=== PATIENT | male | born 1970 | race African-American/Black ===

== ENCOUNTER 2021-09-01 08:22 | Emergency (ER) | payer SELFPAY ==
[2021-09-01 08:38] VITALS: BP 132/81; PULSE 58; RESP 18; TEMP 36.7; O2SAT 99; BMI 24.6
[2021-09-01] MEDS: Acetaminophen 325 MG TABLET 650 MG PO (08:44)
--- NOTE | 2021-09-01 09:31 | ED_ITS ---
HPI - Dental/Oral General Chief complaint: Dental/Oral Stated complaint: dental pain Time Seen by Provider: 09/01/21 09:09 Source: patient Mode of arrival: ambulatory Limitations: no limitations History of Present Illness HPI Narrative: 50 yo male here with right lower dental pain x 2 days. NO injury or trauma. He went to walk-in dental clinic and made appointment for Wednesday. currently does not have any insurance. he is here with his partner and they are working on applying to [employer] for insurance today. no fevers, chills, difficulty swallowing or breathing. taking Motrin and Tylenol with continued pain Related Data Previous Rx's Medication Instructions Recorded clindamycin HCl 150 mg capsule 150 mg PO TID 10 Days #30 cap 09/01/21 ibuprofen 800 mg tablet 800 mg PO Q8H PRN #20 tab 09/01/21 oxycodone 5 mg tablet 5 mg PO Q8H PRN #8 tab 09/01/21 Allergies Allergy/AdvReac Type Severity Reaction Status Date / Time sulfamethoxazole Allergy Severe Anaphylaxis Verified 09/01/21 08:42 [From Bactrim] trimethoprim [From Bactrim] Allergy Anaphylaxis Verified 09/01/21 08:42 ivory soap Allergy Intermediate Rash Uncoded 09/01/21 08:42 Review of Systems Review of Systems: Yes all other systems are reviewed and are negative Constitutional: Constitutional: Reports no additional constitutional complaints, Denies body ache(s), Denies chills, Denies fever(s), Denies headache(s) and Denies weakness Eyes: Eyes: Reports no additional eye complaints and Denies change in vision ENT: Reports system reviewed and no additional complaints, except as documented, Reports dental pain, Denies dizziness, Denies headache(s), Denies nasal congestion, Denies nasal discharge and Denies neck pain Cardiovascular: Cardiovascular: Reports no additional cardiovascular complaints, Denies chest pain, Denies leg edema and Denies dyspnea Respiratory: Respiratory: Reports no additional respiratory complaints, Denies cough and Denies dyspnea Gastrointestinal: Gastrointestinal: Reports no additional gastrointestinal complaints, Denies abdominal pain, Denies diarrhea, Denies nausea and Denies vomiting Genitourinary: Genitourinary: Denies urinary incontinence Musculoskeletal: Musculoskeletal: Reports no additional musculoskeletal complaints, Denies back pain, Denies arthralgias, Denies joint swelling, Denies neck pain, Denies numbness and Denies tingling Integumentary/Breasts: Skin/Breast: Reports system reviewed and no additional complaints, except as docu and Denies rash Neurologic: Reports system reviewed and no additional complaints, except as documented, Denies Abnormal speech present, Denies dizziness, Denies headache(s), Denies numbness, Denies tingling and Denies weakness PMFSH Past Medical History Attestation statement: The following information was validated with the patient. Source: old records reviewed and nursing notes reviewed Social History Social History Advance Directives: No Advance Directives Information Provided: No Physical Exam Vital Signs: Vital Signs: Last Vital Signs Temp 98.0 F 09/01/21 08:38 Pulse 58 09/01/21 08:38 Resp 18 09/01/21 08:38 BP 132/81 09/01/21 08:38 Pulse Ox 99 09/01/21 08:38 Body Mass Index 24.6 Const: General: cooperative, healthy appearing, comfortable and no acute distress Orientation/consciousness: patient oriented x3 Limitations: no limitations HENMT: Other: Extensive dental caries No trismus Head: Yes normal to inspection Ears: hearing grossly normal bilaterally and TM's normal bilaterally General nose exam: Normal external nose present Face and sinus: Yes normal facial exam Mouth: Normal oral and palatal mucosa present Teeth image: 1. Broken, impacted, surrounding erythema with no fluctuance or induration Throat: Yes posterior oropharynx normal, Yes tonsils normal and Yes uvula midline Eyes: General: appearance normal, both eyes and all related structures Pupils: Equal, round and reactive pupils present Neck: Neck: Yes normal visual inspection, Yes full ROM, Yes no lymphadenopathy and Yes no meningeal signs Chest: Chest palpation & inspection: normal inspection of the chest Resp: Effort & Inspection: normal respiratory effort Auscultation: clear to auscultation bilaterally Cardio: Rate: regular rate Rhythm: regular rhythm Peripheral pulses: Peripheral pulses 2+ throughout GI: Inspection: Yes normal to inspection Palpation (GI): Soft to palpation and nontender Auscultation: normal bowel sounds Back/Spine/Pelvis: Thoracic/Lumbar Spine: thoracic and lumbar spine normal to inspection Skin: General skin exam: no rashes or lesions noted Neuro: General: patient oriented x3, no meningeal signs, no focal motor deficits and normal sensation to monofilament Cranial nerves: Yes Equal, round and reactive pupils present Cognition (Neuro): normal cognition Speech: No Abnormal speech present Gait exam (Neuro): Normal gait present Motor exam (neuro): 5/5 motor strength present throughout Extrem: General: Yes normal to inspection Course Course Course Narrative: Right lower dental pain for several days unrelieved with [id number] medications. Local infection with extensive caries and impaction. No trismus or concern for Ozzie's. Plan to initiate antibiotic course, provide analgesia for home. Given Toradol in the ER with improvement. Has appointment on Wednesday with dental. Given information for financial assistance to help him establish i. Reviewed worrisome signs and symptoms and when to return to the emergency department. Comfortable discharge home. Discharge Plan Discharge Clinical Impression: Dental abscess Patient Disposition: Home, Self-Care Instructions: Dental Abscess (ED) Additional Instructions: Salt water gargles Keep appt on Wednesday Prescriptions: New clindamycin HCl 150 mg capsule 150 mg PO TID 10 Days Qty: 30 RF: 0 oxycodone 5 mg tablet 5 mg PO Q8H PRN (Reason: pain) Qty: 8 RF: 0 ibuprofen 800 mg tablet 800 mg PO Q8H PRN (Reason: pain) Qty: 20 RF: 0 Referrals: Physician,None [Primary Care Provider] - 2 days Interventions: ED Discharge Assessment Last Done: 09/01/21 09:45 Discharge Date/Time: 09/01/21 09:45
[2021-09-01] MEDS: Ketorolac Tromethamine 60 MG/2 ML VIAL IM (09:40)
== END 2021-09-01 09:45 | disposition home or self-care (01) ==
PROVIDERS: Emergency Provider Student in an Organized Health Care Education/Training Program
DX: K04.7 Periapical abscess without sinus (principal); K08.89 Other specified disorders of teeth and supporting structures; Z79.899 Other long term (current) drug therapy
CPT/HCPCS: 96372; 99284; J1885

== ENCOUNTER 2022-06-16 10:04 | Emergency (ER) | payer MEDICAID, SELFPAY ==
[2022-06-16 10:17] VITALS: BP 159/105; PULSE 49; RESP 18; TEMP 35.8; O2SAT 96; BMI 24.9
--- NOTE | 2022-06-16 10:20 | ECG_ITS ---
Test Reason : dizziness Blood Pressure : / mmHG Vent. Rate : 050 BPM Atrial Rate : 059 BPM P-R Int : 000 ms QRS Dur : 096 ms QT Int : 394 ms P-R-T Axes : 042 056 054 degrees QTc Int : 359 ms Sinus bradycardia with 2nd degree A-V block (Mobitz I) Abnormal ECG No previous ECGs available Referred By: Generic ED Physician Electronically Signed By:MARIANNA RUFFIN MD
[2022-06-16 10:35] LABS: MANUAL DIFF FLAG NO
[2022-06-16 10:51] LABS: Anion Gap 12 (12-20); Blood Urea Nitrogen 10 mg/dL (9-16); Calcium 9.1 mg/dL (8.4-10.2); Carbon Dioxide 27 mmol/L (22-29); Chloride 107 mmol/L (96-108); Estimated Glomerular Filt Rate > 60; Glucose Random 99 mg/dL (60-115); Sodium 142 mmol/L (135-145)
[2022-06-16 10:57] LABS: Troponin-I High Sensitivity 8.9 ng/L (<3.5-35.0)
[2022-06-16 11:18] VITALS: BP 111/84; PULSE 56; RESP 17; TEMP 36.6; O2SAT 97
[2022-06-16 12:20] VITALS: BP 119/71; PULSE 47; RESP 13; TEMP 36.6; O2SAT 99
--- NOTE | 2022-06-16 12:49 | ED.GENADULT ---
HPI - General Adult General Chief complaint: General Medical Stated complaint: Dizziness Time Seen by Provider: 06/16/22 12:49 Source: patient Mode of arrival: ambulatory Limitations: no limitations History of Present Illness HPI narrative: 51-year-old male who presents emergency department for evaluation dizziness brought on by position change. The patient states the symptoms started 1 week prior. He states that they came on suddenly. He states that he woke up from sleep, side up and felt like the room was spinning. He states that since then he has had episodes of room spinning when he has a position change . He states that these symptoms will go away if he rests. He denied any other associated symptoms such as lightheadedness, headache, change in his vision, weakness. Patient states that he did have a neck injury several years ago and has had persistent numbness in both his left and right arms but this is unchanged. States he occasionally does have weakness in both his left and right arms but does not have any weakness at this time. He denied fever, chills, chest pain, shortness of breath, nausea, vomiting, diarrhea, change in his bowel movements. Related Data Previous Rx's Medication Instructions Recorded clindamycin HCl 150 mg capsule 150 mg PO TID 10 days #30 caps 09/01/21 ibuprofen 800 mg tablet 800 mg PO Q8H PRN pain #20 tabs 09/01/21 oxycodone 5 mg tablet 5 mg PO Q8H PRN pain #8 tabs 09/01/21 Allergies Allergy/AdvReac Type Severity Reaction Status Date / Time sulfamethoxazole Allergy Severe Anaphylaxis Verified 06/16/22 10:16 [From Bactrim] trimethoprim [From Bactrim] Allergy Anaphylaxis Verified 06/16/22 10:16 ivory soap Allergy Intermediate Rash Uncoded 09/01/21 08:42 Review of Systems Review of Systems: Yes all other systems are reviewed and are negative [facility] Past Medical History [facility] Narrative: Past medical history: None. Past surgical history: Right ankle fracture ORIF. Social history: He smokes 1/2 pack of cigarettes per day times 37 years. He occasionally drinks alcohol. He does smoke marijuana. Social History Social History Advance Directives: No Advance Directives Information Provided: No Physical Exam ED Vital Signs: Vital Signs - 24 hr 06/16/22 10:17 06/16/22 11:18 06/16/22 12:20 Temperature 96.5 F L 97.9 F 97.8 F Pulse Rate 49 L 56 47 L Respiratory Rate 18 17 13 Blood Pressure 159/105 H 111/84 119/71 Pulse Oximetry 96 97 99 Oxygen Delivery Method Room Air Room Air Room Air BMI result Body Mass Index 24.9 Const General: cooperative and no acute distress Orientation/consciousness: oriented to person and oriented to place Limitations: no limitations HENMT Head: Yes normal to inspection, Yes normocephalic and Yes atraumatic Ears: external ears normal General nose exam: Normal external nose present Face and sinus: Yes normal facial exam Mouth: Normal oral and palatal mucosa present Throat: Yes posterior oropharynx normal Eyes General: appearance normal, both eyes and all related structures Pupils: Equal, round and reactive pupils present Neck Neck: Yes normal visual inspection, Yes no lymphadenopathy, Yes trachea midline and Yes supple Chest Chest palpation & inspection: normal inspection of the chest and normal palpation of entire chest wall Resp Effort & Inspection: normal respiratory effort and able to speak in complete sentences Auscultation: clear to auscultation bilaterally Cardio Rate: bradycardic Rhythm: regular rhythm Heart sounds: S1 normal heart sound present, S2 normal heart sound present and no murmurs GI Inspection: Yes normal to inspection Palpation (GI): Soft to palpation, nontender and no guarding Auscultation: normal bowel sounds General: Yes no CVA tenderness Back/Spine/Pelvis Back: no CVA tenderness Skin General skin exam: no rashes or lesions noted Neuro General: oriented to person and oriented to place Cranial nerves: Yes CN's II-XII intact bilaterally and Yes Equal, round and reactive pupils present Cognition (Neuro): normal cognition Gait exam (Neuro): Normal gait present Motor exam (neuro): 5/5 motor strength present throughout Coordination: [id number] test normal and [id number]-[id number] test normal Extrem General: Yes normal to inspection Psych Appearance: grossly normal Speech and movement: Normal speech and movement present Affect: normal affect Attitude: cooperative Thought process: Normal thought process present Thought content: Normal thought content present Course Course Course Narrative: 51-year-old male who presents emergency department for evaluation of 1 week of intermittent vertigo like symptoms brought on by position change. He states that the symptoms are getting better but he is still having episodes of dizziness. The patient had no other significant associated symptoms. Patient's physical examination did reveal bradycardia otherwise his neurologic exam was nonfocal and he does not have any significant nystagmus. I did move the patient around on the bed and was unable to elicit any vertigo like symptoms. Patient was able to walk in the emergency department without any difficulty and his cerebellar exam was normal pain. The patient's dizziness is consistent with benign positional vertigo and I did discuss this with him. He was started on meclizine. Patient does have a second-degree AV block (Mobitz type 1) the patient will be referred to our covering apartment manager for further evaluation. Medical Decision Making Lab Data Lab results reviewed: Yes I reviewed the patient's lab results. Result diagrams: 06/16/22 10:32 06/16/22 10:32 Labs: Lab Results 06/16/22 06/16/22 06/16/22 Range/Units 10:32 10:32 10:32 WBC 5.5 (4.8-10.8) X10*3/uL RBC 4.70 (4.60-5.80) X10*6/uL Hgb 13.9 L (14.0-18.0) g/dl Hct 42.8 (42.0-52.0) % MCV 91.1 (80.0-98.0) fL MCH 29.6 (27.0-33.0) pg MCHC 32.5 (31.0-36.0) g/dl RDW 12.0 (11.0-16.0) % Plt Count 216 (160-400) X10*3/uL MPV 10.2 (9.4-12.4) fL Immature Gran % (Auto) 0.4 (0.0-0.4) % Neut % (Auto) 37.1 L (45-73) % Lymph % (Auto) 47.0 H (20-40) % [place] % (Auto) 13.3 H (2-11) % Eos % (Auto) 1.5 (0-4) % Baso % (Auto) 0.7 (0-2) % Lymph # (Auto) 2.6 (1.2-4.9) X10*3/uL [place] # (Auto) 0.7 (0.1-1.2) X10*3/uL Eos # (Auto) 0.1 (0.0-0.4) X10*3/uL Baso # (Auto) 0.0 (0.0-0.2) X10*3/uL Abs Immat Gran (auto) 0.02 (0.00-0.03) X10*3/uL Absolute Neuts (auto) 2.0 (2.0-8.3) x10*3/uL Absolute Nucleated RBC 0.000 (0.0-0.012) X10*3/uL Nucleated RBC % (auto) 0.0 (0.0-0.2) /100WBC Sodium 142 (135-145) mmol/L Potassium 4.0 (3.3-5.1) mmol/L Chloride 107 (96-108) mmol/L Carbon Dioxide 27 (22-29) mmol/L Anion Gap 12 (12-20) BUN 10 (9-16) mg/dL Creatinine 0.96 (0.5-1.4) mg/dL Estim Creat Clear Calc 107.0 Estimated GFR > 60 Random Glucose 99 (60-115) mg/dL Calcium 9.1 (8.4-10.2) mg/dL Troponin I High Sens 8.9 (<3.5-35.0) ng/L ECG Data Attestation: I personally reviewed and interpreted this ECG as follows: Interpretation: 1026: Sinus bradycardia was second-degree AV block (Mobitz type 1) with a rate of 50, normal QRS and QTC intervals, inverted T-waves V1, no Q-waves, no ST segment elevation or depression, no PACs, no PVCs Discharge Plan Discharge Clinical Impression: Mobitz type 1 second degree AV block Benign positional vertigo Qualifiers: Laterality: unspecified laterality Qualified Code(s): H81.10 - Benign paroxysmal vertigo, unspecified ear Patient Disposition: Home, Self-Care Instructions: Benign Paroxysmal Positional Vertigo (ED), Bradycardia (ED) Additional Instructions: Your blood work was normal. Your EKG did reveal a second-degree AV block (Mobitz type 1). This is a normal rhythm however I want you to follow-up with our apartment manager for re-evaluation. Your symptoms are consistent with positional vertigo Take meclizine 25 mg pills, 1 pill 3 times a day for the next 3 days for dizziness then as needed for dizziness. This medication will make you sleepy. Do not drive or work while taking this medication. Follow-up with your doctor in 2 days. Please return to the emergency department if your symptoms get worse or if you develop any symptoms that are concerning to you. Please read the printed instructions. Prescriptions: No Action clindamycin HCl 150 mg capsule 150 mg PO TID 10 Days Qty: 30 0RF oxycodone 5 mg tablet 5 mg PO Q8H PRN (Reason: pain) Qty: 8 0RF ibuprofen 800 mg tablet 800 mg PO Q8H PRN (Reason: pain) Qty: 20 0RF Referrals: Harjinder Jose MD [Physician] - 2 weeks (Bradycardia with second-degree AV block Mobitz type 1)
[2022-06-16 13:08] LABS: Basophils Percent Auto 0.7 % (0-2); Eosinophils Absolute Auto 0.1 X10*3/uL (0.0-0.4); Eosinophils Percent Auto 1.5 % (0-4); Hematocrit 42.8 % (42.0-52.0); Hemoglobin 13.9 g/dl (14.0-18.0); Imm Gran Abs Auto 0.02 X10*3/uL (0.00-0.03); Imm Gran Pct Auto 0.4 % (0.0-0.4); Lymphocytes Absolute Auto 2.6 X10*3/uL (1.2-4.9); Mean Corpuscular HGB Conc 32.5 g/dl (31.0-36.0); Mean Corpuscular Hemoglobin 29.6 pg (27.0-33.0); Mean Corpuscular Volume 91.1 fL (80.0-98.0); Mean Platelet Volume 10.2 fL (9.4-12.4); Monocytes Absolute Auto 0.7 X10*3/uL (0.1-1.2); Monocytes Percent Auto 13.3 % (2-11); Neutrophils Percent Auto 37.1 % (45-73); Platelet Count 216 X10*3/uL (160-400); White Blood Count 5.5 X10*3/uL (4.8-10.8)
[2022-06-16 13:37] VITALS: BP 123/75; PULSE 56; RESP 16; O2SAT 98
== END 2022-06-16 13:48 | disposition home or self-care (01) ==
PROVIDERS: Emergency Provider Emergency Medicine Emergency Medical Services
DX: H81.10 Benign paroxysmal vertigo, unspecified ear (principal); I44.1 Atrioventricular block, second degree
CPT/HCPCS: 36415; 80048; 84484; 85025; 93005; 99283; 99284

== ENCOUNTER 2022-09-07 12:03 | Outpatient (REF) | payer MEDICAID, SELFPAY ==
[2022-09-07 12:36] LABS: MANUAL DIFF FLAG NO
[2022-09-07 13:33] LABS: Basophils Percent Auto 0.6 % (0-2); Eosinophils Percent Auto 0.6 % (0-4); Hematocrit 43.8 % (42.0-52.0); Hemoglobin 14.6 g/dl (14.0-18.0); Imm Gran Abs Auto 0.03 X10*3/uL (0.00-0.03); Imm Gran Pct Auto 0.6 % (0.0-0.4); Lymphocytes Absolute Auto 2.3 X10*3/uL (1.2-4.9); Mean Corpuscular HGB Conc 33.3 g/dl (31.0-36.0); Mean Corpuscular Hemoglobin 30.9 pg (27.0-33.0); Mean Corpuscular Volume 92.8 fL (80.0-98.0); Mean Platelet Volume 10.5 fL (9.4-12.4); Monocytes Absolute Auto 0.6 X10*3/uL (0.1-1.2); Monocytes Percent Auto 12.5 % (2-11); Neutrophils Percent Auto 40.7 % (45-73); Platelet Count 211 X10*3/uL (160-400); Red Blood Count 4.72 X10*6/uL (4.60-5.80); Red Cell Distribution Width 12.3 % (11.0-16.0)
[2022-09-07 14:05] LABS: Alanine Aminotransferase 13 U/L (0-40); Albumin Level 4.5 g/dL (3.5-5.0); Alkaline Phosphatase 54 U/L (39-117); Anion Gap 16 (12-20); Aspartate Amino Transferase 20 U/L (5-37); Bilirubin Total 0.8 mg/dL (0.0-1.0); Blood Urea Nitrogen 10 mg/dL (9-16); Calcium 9.7 mg/dL (8.4-10.2); Carbon Dioxide 26 mmol/L (22-29); Chloride 103 mmol/L (96-108); Cholesterol 209 mg/dL; Estimated Glomerular Filt Rate > 60; Glucose Random 93 mg/dL (60-115); HDL Cholesterol 54 mg/dL; LDL Cholesterol Calculated 136 mg/dl; Potassium 4.5 mmol/L (3.3-5.1); Sodium 140 mmol/L (135-145); Total Protein 7.6 g/dL (6.5-8.0); Triglycerides 99 mg/dL
[2022-09-07 14:27] LABS: Prostate Specific Antigen 0.53 ng/mL (<0.05-4.0); Thyroid Stimulating Hormone 1.11 uIU/mL (0.32-4.0)
== END 2022-09-07 12:04 | disposition home or self-care (01) ==
LOC: HO.LAB 12:03
PROVIDERS: PCP Internal Medicine; Visit Provider Internal Medicine
DX: Z00.00 Encounter for general adult medical examination without abnormal findings (principal); Z12.5 Encounter for screening for malignant neoplasm of prostate; G51.0 Bell's palsy; M65.842 Other synovitis and tenosynovitis, left hand; N49.2 Inflammatory disorders of scrotum; Z72.0 Tobacco use
CPT/HCPCS: 36415; 80053; 80061; 84153; 84443; 85025

== ENCOUNTER → 2022-10-19 13:32 | Outpatient (BNVA) | payer MEDICAID, SELFPAY | PROVIDERS: PCP Internal Medicine; Referring Provider Internal Medicine; Visit Provider Surgery | DX: Z01.818 Encounter for other preprocedural examination (principal); K64.8 Other hemorrhoids | CPT/HCPCS: 99202 ==

== ENCOUNTER → 2022-11-03 09:33 | Outpatient (BNVA) | payer MEDICAID, SELFPAY | PROVIDERS: PCP Internal Medicine; Visit Provider Nurse Practitioner Family | DX: Z13.89 Encounter for screening for other disorder (principal) ==

== ENCOUNTER 2022-12-02 10:33 | Outpatient (REF) | payer MEDICAID, SELFPAY ==
--- NOTE | ~2022-12-02 | XR_ITS ---
EXAMINATION: XR HAND, LEFT CLINICAL INFORMATION: Pain. COMPARISON: None TECHNIQUE: PA, lateral, and oblique views of the left hand. FINDINGS: Bony alignment and mineralization are normal. There is a slight ulnar positive variance. No fracture or dislocation is seen. There is mild osteoarthritic change of the first carpometacarpal joint. The proximal and distal carpal rows are intact. No focal soft tissue swelling, gas or foreign body is seen. XR/XR hand LT min 3V IMPRESSION: 1. No fracture, dislocation or bone erosion is seen. 2. There is mild osteoarthritic change of the left first carpometacarpal joint.
== END 2022-12-02 10:34 | disposition home or self-care (01) ==
LOC: HO.HOSX 10:33
PROVIDERS: Visit Provider Orthopaedic Surgery
DX: M79.642 Pain in left hand (principal); R20.0 Anesthesia of skin
CPT/HCPCS: 73130; 99202

== ENCOUNTER → 2022-12-07 11:23 | Outpatient (BNVA) | payer MEDICAID, SELFPAY | PROVIDERS: PCP Internal Medicine; Referring Provider Internal Medicine; Visit Provider Internal Medicine Cardiovascular Disease | DX: Z01.810 Encounter for preprocedural cardiovascular examination (principal) | CPT/HCPCS: 93005; 99202 ==

== ENCOUNTER → 2023-01-29 12:42 | Outpatient (BNVA) | payer MEDICAID, SELFPAY | PROVIDERS: PCP Internal Medicine; Visit Provider Physician Assistant | DX: M54.12 Radiculopathy, cervical region (principal); R20.0 Anesthesia of skin | CPT/HCPCS: 99212 ==

== ENCOUNTER → 2023-02-01 10:36 | Outpatient (BNVA) | payer MEDICAID, SELFPAY | PROVIDERS: PCP Internal Medicine; Visit Provider Nurse Practitioner Family | DX: L72.3 Sebaceous cyst (principal) | CPT/HCPCS: 99212 ==

== ENCOUNTER 2023-02-05 06:27 | Day surgery (SDC) | payer MEDICAID, SELFPAY ==
[2023-01-29 19:13] VITALS: BMI 25.7
--- NOTE | 2023-02-04 09:11 | P.CONAN_ITS ---
vbb Documented by User: Grecia Ponce NP 02/04/23 09:17 HPI - Anesthesia Eval Consult details Narrative: 52yo M for Colonoscopy with possible Polypectomy Cardiac optimized [facility] Active Problems Active Problems: All Active Problems (Updated 01/29/23 @ 13:09 by Vipul Moody PA-C) Cervical radiculopathy (Acute) Numbness of left hand (Acute) Sebaceous cyst of scrotum (Acute) Colon cancer screening (Acute) Hemorrhoids with complication (Acute) Past Medical History Medical History Colon cancer screening Hemorrhoids with complication Right ankle injury Sebaceous cyst of scrotum Family History Family History Mother Hypertension Diabetes Father No problems noted. Brother Gastric cancer Surgical History Surgical History History of ankle surgery Social History Social History Do you presently have visiting nurse or other home services: No Alcohol intake: former Patient Tobacco Use Status: Current everyday Tobacco user Tobacco use type: Cigarette Cigarettes Per Day: 10 Smoked in Last 30 Days: Yes Patient Interested in Nicotine Replacement: No Patient Given Instructions on How to Stop Smoking: No Second Hand Smoke Exposure: Yes Use of substances other than those prescribed or required for medical reasons: Yes Substance Use Frequency: Daily Have you been hit, kicked, punched, or otherwise hurt by someone within the past year? If so, by whom?: No Advance Directives: No Advance Directives Information Provided: Yes Recently lost weight without trying: No Eating poorly because of decreased appetite: No Nutrition Risks: No Nutritional Risk Poor oral hygiene: No Current occupational status: unemployed Current occupation: rt hand Meds Allergies Allergy/AdvReac Type Severity Reaction Status Date / Time trimethoprim [From Bactrim] Allergy Severe Anaphylaxis Verified 02/01/23 10:54 codeine Allergy Mild Unknown Verified 02/01/23 10:54 ivory soap Allergy Intermediate Rash Uncoded 02/01/23 10:54 Exam Exam Date and Time: February 04, 2023 0911 Height,Weight and Vital Signs: Height 6 ft 2 in Weight 90.718 kg Pertinent Lab Results Pertinent Lab Results: Laboratory Tests 09/07/22 09/07/22 12:34 12:34 WBC 5.0 Hgb 14.6 Hct 43.8 Plt Count 211 Sodium 140 Potassium 4.5 Chloride 103 Carbon Dioxide 26 BUN 10 Creatinine 1.02 Assessment and Plan Assessment Anesthesia Assessment: Chart Reviewed Documented by User: Rigoberto Garcia MD 02/05/23 08:28 PMFSH Past Medical History Medical History Colon cancer screening Hemorrhoids with complication Right ankle injury Sebaceous cyst of scrotum Family History Family History Mother Hypertension Diabetes Father No problems noted. Brother Gastric cancer Family history of problems with anesthesia: No Surgical History Surgical History History of ankle surgery History of Problems with Anesthesia: No Social History Social History Do you presently have visiting nurse or other home services: No Alcohol intake: former Patient Tobacco Use Status: Current everyday Tobacco user Tobacco use type: Cigarette Cigarettes Per Day: 10 Smoked in Last 30 Days: Yes Patient Interested in Nicotine Replacement: No Patient Given Instructions on How to Stop Smoking: No Second Hand Smoke Exposure: Yes Use of substances other than those prescribed or required for medical reasons: Yes Substance Use Frequency: Daily Have you been hit, kicked, punched, or otherwise hurt by someone within the past year? If so, by whom?: No Advance Directives: No Advance Directives Information Provided: Yes Recently lost weight without trying: No Eating poorly because of decreased appetite: No Nutrition Risks: No Nutritional Risk Poor oral hygiene: No Current occupational status: unemployed Current occupation: rt hand Meds Allergies Allergy/AdvReac Type Severity Reaction Status Date / Time trimethoprim [From Bactrim] Allergy Severe Anaphylaxis Verified 02/01/23 10:54 codeine Allergy Mild Unknown Verified 02/01/23 10:54 ivory soap Allergy Intermediate Rash Uncoded 02/01/23 10:54 Exam Airway Mallampati Class: II TM Dist: >3cm Neck ROM: Full Heart: rrr Lungs: cta Assessment and Plan Assessment Anesthesia Assessment: Anesthesia Plan Discussed and Chart Reviewed Final Anesthetic Review Family History of Problems with Anesthesia: No History of Problems with Anesthesia: No NPO: Yes ASA Class: II Final Preanesthetic Review: No Changes in Pt Med Stat, Meds/Allgs Chart Reviewed, Consent Obtained/Reviewed and Anes Risks/Benef Reviewed Patient Risk: Intermediate Procedure Risk: Intermediate Anesthetic Plan Anesthetic Plan: MAC: and Agree w/ Assess. and Plan Disposition: Standard PACU
[2023-02-05 06:38] VITALS: BP 123/77; PULSE 71; RESP 18; TEMP 36.2; O2SAT 97
[2023-02-05 06:41] VITALS: BMI 26.6
[2023-02-05] MEDS: Lactated Ringers 1,000 ML 100 ML IVCONT (07:17)
--- NOTE | 2023-02-05 07:24 | MHC.SHP ---
Pre-Procedural Eval Section A Date of Service: 02/05/23 Section B Chief Complaint: Screening Details of Present Illness: has never had colonoscopy in the past Relevant Social History: None Present Medications: see Short Stay Collaborative assessment Medical History: Significant History ( cervical radiculopathy) History of Previous Operations: No relevant previous surgery Allergies: Allergies Allergy/AdvReac Type Severity Reaction Status Date / Time trimethoprim [From Bactrim] Allergy Severe Anaphylaxis Verified 02/01/23 10:54 codeine Allergy Mild Unknown Verified 02/01/23 10:54 ivory soap Allergy Intermediate Rash Uncoded 02/01/23 10:54 Review of Systems Sugical H&P ROS: Negative: Constitution, Cardiovascular, Respiratory, Neurological, Psychiatric, Hem-Onc, Allergic/Immunologic, Gastrointestinal, Genitourinary, Musculoskeletal, Integumentary, Endocrine and Eyes/Ears/Nose/Throat Exam Surgical H&P Exam: Normal: HEENT, Normal: Heart, Normal: Lungs, Normal: Extremities, Normal: Abdomen, Normal: Skin and Normal: Neurological Plan Diagnosis/Plan: Unchanged I have reviewed the history and physical and performed a pertinent physical examination on my patient. No changes have occurred unless specified. Time Spent With Patient Time: Total time managing care of this patient today ____ minutes.
--- NOTE | 2023-02-05 08:14 | W.PM.OPN ---
Operative Note Operative Note Date of Service: 02/05/23 Narrative: Preop diagnosis: Colon cancer screening Postop diagnosis: Small polyp, about 4 5 mm, 40 cm removed with cold forceps Procedure: Colonoscopy with polypectomy using cold forceps x1 Surgeon: Ramakrishna Paiz MD The patient is a 52-year-old male here for screening colonoscopy. He understood the technique of the procedure. He was aware of the risks, benefits, and alternatives. The patient was brought to the operating room and placed in left lateral decubitus position under monitored anesthesia care. A surgical time-out was done. A full digital rectal exam was done and this did not reveal any significant anal lesions. The tip of the Olympus colonoscope was gently introduced through the anal orifice advanced with insufflation all the way to the cecum. The cecum was intubated. The cecum was identified by visualization of the ileocecal valve as well as the appendiceal orifice. The cecal mucosa was unremarkable. The scope was gradually withdrawn with careful examination of the entire colonic mucosa being done with scope withdrawal. The patient had good bowel prep so it was unlikely that any lesion may have been missed. At level 40 cm, there was note of a small polyp, about 4 mm. This was removed with multiple bites using cold forceps. The rectum was reached and there were no lesions seen. The anal canal was unremarkable. The scope was then withdrawn completely with desufflation The patient tolerated procedure well. There were no immediate complications. Depending on his path report, his next colonoscopy may be in the next 10 years.
[2023-02-05 08:18] VITALS: BP 107/65; PULSE 60; RESP 16; TEMP 36.6; O2SAT 97
--- NOTE | 2023-02-05 08:26 | HO.ANESPROP2 ---
HPI - Anesthesia Eval Consult details Narrative: colonoscopy PMF Active Problems Active Problems: All Active Problems (Updated 01/29/23 @ 13:09 by Vipul Moody PA-C) Cervical radiculopathy (Acute) Numbness of left hand (Acute) Sebaceous cyst of scrotum (Acute) Colon cancer screening (Acute) Hemorrhoids with complication (Acute) Past Medical History Medical History Colon cancer screening Hemorrhoids with complication Right ankle injury Sebaceous cyst of scrotum Family History Family History Mother Hypertension Diabetes Father No problems noted. Brother Gastric cancer Family history of problems with anesthesia: No Surgical History Surgical History History of ankle surgery History of Problems with Anesthesia: No Social History Social History Do you presently have visiting nurse or other home services: No Alcohol intake: former Patient Tobacco Use Status: Current everyday Tobacco user Tobacco use type: Cigarette Cigarettes Per Day: 10 Smoked in Last 30 Days: Yes Patient Interested in Nicotine Replacement: No Patient Given Instructions on How to Stop Smoking: No Second Hand Smoke Exposure: Yes Use of substances other than those prescribed or required for medical reasons: Yes Substance Use Frequency: Daily Have you been hit, kicked, punched, or otherwise hurt by someone within the past year? If so, by whom?: No Advance Directives: No Advance Directives Information Provided: Yes Recently lost weight without trying: No Eating poorly because of decreased appetite: No Nutrition Risks: No Nutritional Risk Poor oral hygiene: No Current occupational status: unemployed Current occupation: rt hand Meds Allergies Allergy/AdvReac Type Severity Reaction Status Date / Time trimethoprim [From Bactrim] Allergy Severe Anaphylaxis Verified 02/01/23 10:54 codeine Allergy Mild Unknown Verified 02/01/23 10:54 ivory soap Allergy Intermediate Rash Uncoded 02/01/23 10:54 Active Medications: Current Medications Albuterol Sulfate (Albuterol Sulfate (0.083%) 2.5 Mg/3 Ml Vial.Neb) 2.5 mg INHALE ONCE PRN PRN Reason: Shortness of Breath/Wheezing Lactated Ringer's (Lr) 1,000 mls @ 100 mls/hr IVCONT .Q10H CHARITY Last Admin: 02/05/23 07:17 Dose: 100 mls/hr Exam Exam Date and Time: February 05, 2023 0826 Height,Weight and Vital Signs: Height 6 ft 2 in Weight 94.347 kg Last Vital Signs Temp 98 F 02/05/23 08:20 Pulse 60 02/05/23 08:20 Resp 16 02/05/23 08:20 BP 107/65 02/05/23 08:20 Pulse Ox 97 02/05/23 08:20 O2 Del Method Room Air 02/05/23 08:20 Airway Mallampati Class: II TM Dist: >3cm Neck ROM: Full Heart: rrr Assessment and Plan Assessment Anesthesia Assessment: Anesthesia Plan Discussed and Chart Reviewed Final Anesthetic Review Family History of Problems with Anesthesia: No History of Problems with Anesthesia: No NPO: Yes ASA Class: II Final Preanesthetic Review: No Changes in Pt Med Stat, Meds/Allgs Chart Reviewed, Consent Obtained/Reviewed and Anes Risks/Benef Reviewed Patient Risk: Low Procedure Risk: Low Anesthetic Plan Anesthetic Plan: MAC: Disposition: Standard PACU
[2023-02-05 08:33] VITALS: BP 115/77; PULSE 60; RESP 16; TEMP 36.3; O2SAT 100
== END 2023-02-05 09:05 | disposition home or self-care (01) ==
PROVIDERS: PCP Internal Medicine; Visit Provider Surgery
PROC: 0DBE8ZZ Excision of Large Intestine, Via Natural or Artificial Opening Endoscopic (ICD-10-PCS; CPT 45380; principal; 2023-02-05 07:30)
DX: Z12.11 Encounter for screening for malignant neoplasm of colon (principal); D12.5 Benign neoplasm of sigmoid colon; K64.8 Other hemorrhoids; K64.4 Residual hemorrhoidal skin tags; L72.3 Sebaceous cyst; Z88.2 Allergy status to sulfonamides; F17.210 Nicotine dependence, cigarettes, uncomplicated
CPT/HCPCS: 45380; 88305

== ENCOUNTER → 2023-02-18 10:07 | Outpatient (BNVA) | payer MEDICAID, SELFPAY | PROVIDERS: PCP Internal Medicine; Visit Provider Surgery | DX: K64.8 Other hemorrhoids (principal); D36.9 Benign neoplasm, unspecified site | CPT/HCPCS: 99212 ==

== ENCOUNTER 2023-02-25 11:25 | Outpatient (REF) | payer MEDICAID, SELFPAY ==
--- NOTE | 2023-02-25 08:00 | EMG_ITS ---
Bilateral median and ulnar motor and sensory studies were performed. Bilateral radial sensory studies were performed and paraspinal muscles were tested with a needle. IMPRESSION: Mild to moderate left and mild right ulnar neuropathy across cubital tunnel. MD CHARLES Lopez/ELVIRA / [id number]
== END 2023-02-25 11:26 | disposition home or self-care (01) ==
LOC: HO.NEURO 11:25
PROVIDERS: PCP Internal Medicine; Visit Provider Orthopaedic Surgery
DX: R20.0 Anesthesia of skin (principal); R20.2 Paresthesia of skin
CPT/HCPCS: 95886; 95911

== ENCOUNTER 2023-03-16 07:29 | Day surgery (SDC) | payer MEDICAID, SELFPAY ==
[2023-03-11 14:38] VITALS: BMI 26.4
--- NOTE | 2023-03-15 09:12 | HO.ANESPROP2 ---
Documented by User: Grecia Ponce NP 03/15/23 09:15 HPI - Anesthesia Eval Consult details Narrative: 52yo M for EUA Hemorrhoidectomy, I&D Abscess Groin right Cardiac cleared PMFSH Active Problems Active Problems: All Active Problems (Updated 02/18/23 @ 10:36 by Ramakrishna Paiz MD) Tubular adenoma (Acute) Cervical radiculopathy (Acute) Numbness of left hand (Acute) Sebaceous cyst of scrotum (Acute) Colon cancer screening (Acute) Hemorrhoids with complication (Acute) Past Medical History Medical History (Updated 03/16/23 @ 09:06 by Jazlyn Vásquez, RN) Bradyarrhythmia Bradycardia Colon cancer screening Hemorrhoids with complication History of second degree heart block Right ankle injury Sebaceous cyst of scrotum Tubular adenoma Family History Family History Mother Hypertension Diabetes Father No problems noted. Brother Gastric cancer Family history of problems with anesthesia: No Surgical History Surgical History (Updated 03/16/23 @ 08:09 by Jazlyn Vásquez RN) History of ankle surgery Hx of colonoscopy History of Problems with Anesthesia: No Social History Social History Do you presently have visiting nurse or other home services: No Alcohol intake: former Patient Tobacco Use Status: Current everyday Tobacco user Tobacco use type: Cigarette Cigarettes Per Day: 10 Second Hand Smoke Exposure: Yes Are you DNR?: No Advance Directives: No Advance Directives Information Provided: Yes Current occupational status: unemployed Current occupation: rt hand Meds Allergies Allergy/AdvReac Type Severity Reaction Status Date / Time trimethoprim [From Bactrim] Allergy Severe Anaphylaxis Verified 02/18/23 10:17 codeine Allergy Mild Unknown Verified 02/18/23 10:17 ivory soap Allergy Intermediate Rash Uncoded 02/01/23 10:54 Exam Exam Date and Time: March 15, 2023 0912 Height,Weight and Vital Signs: Height 6 ft 2 in Weight 93.44 kg Narrative Narrative: EKG 11/2022 normal sinus rhythm with normal EKG Assessment and Plan Assessment Anesthesia Assessment: Chart Reviewed Final Anesthetic Review Family History of Problems with Anesthesia: No History of Problems with Anesthesia: No Documented by User: Mark Peña MD 03/16/23 10:12 [facility] Past Medical History Medical History (Updated 03/16/23 @ 09:06 by Jazlyn Vásquez, RN) Bradyarrhythmia Bradycardia Colon cancer screening Hemorrhoids with complication History of second degree heart block Right ankle injury Sebaceous cyst of scrotum Tubular adenoma Narrative: 2nd degree heart block, Mobitz type 1. D/W Dr. Jose. Family History Family History Mother Hypertension Diabetes Father No problems noted. Brother Gastric cancer Surgical History Surgical History (Updated 03/16/23 @ 08:09 by Jazlyn Vásquez, RN) History of ankle surgery Hx of colonoscopy Social History Social History Do you presently have visiting nurse or other home services: No Alcohol intake: former Patient Tobacco Use Status: Current everyday Tobacco user Tobacco use type: Cigarette Cigarettes Per Day: 10 Second Hand Smoke Exposure: Yes Are you DNR?: No Advance Directives: No Advance Directives Information Provided: Yes Current occupational status: unemployed Current occupation: rt hand Meds Allergies Allergy/AdvReac Type Severity Reaction Status Date / Time trimethoprim [From Bactrim] Allergy Severe Anaphylaxis Verified 02/18/23 10:17 codeine Allergy Mild Unknown Verified 02/18/23 10:17 ivory soap Allergy Intermediate Rash Uncoded 02/01/23 10:54 Exam Airway Mallampati Class: I TM Dist: >3cm Neck ROM: Full Heart: ok Lungs: ok Assessment and Plan Assessment Anesthesia Assessment: Anesthesia Plan Discussed Final Anesthetic Review NPO: Yes ASA Class: II Final Preanesthetic Review: No Changes in Pt Med Stat, Meds/Allgs Chart Reviewed, Consent Obtained/Reviewed and Anes Risks/Benef Reviewed Patient Risk: Low Procedure Risk: Intermediate Anesthetic Plan Anesthetic Plan: GA and Agree w/ Assess. and Plan Disposition: Standard PACU
[2023-03-16] VITALS (8 sets, daily range): BP systolic 116–148; BP diastolic 66–97; PULSE 42–82; RESP 16–22; TEMP 36.6–37.2; O2SAT 98
[2023-03-16] MEDS: Lactated Ringers 1,000 ML 100 ML IVCONT (08:25)
--- NOTE | 2023-03-16 08:42 | ECG_ITS ---
Test Reason : pre op Blood Pressure : / mmHG Vent. Rate : 039 BPM Atrial Rate : 052 BPM P-R Int : 000 ms QRS Dur : 098 ms QT Int : 420 ms P-R-T Axes : 037 053 045 degrees QTc Int : 338 ms Sinus bradycardia with 2nd degree A-V block (Mobitz I) Abnormal ECG No previous ECGs available Referred By: Savage Dumont Electronically Signed By:MARIANNA RUFFIN MD
--- NOTE | 2023-03-16 08:43 | PC.NURSE ---
hr ranging from 35-50 ekg ordered pt denies dizziness no sob a/ox3
--- NOTE | 2023-03-16 10:01 | PC.NURSE ---
dr zambrano spoke to hospice music therapy they will proceed with procedure
--- NOTE | 2023-03-16 11:05 | W.PM.OPN ---
Operative Note Operative Note Date of Service: 03/16/23 Narrative: Preop diagnosis: 1.Hemorrhoids with pain and bleeding 2.Multiple scrotal cysts Postop diagnosis: The same Procedure: 1. 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 He wanted to proceed with hemorrhoidectomy because of his symptoms. He also had multiple scrotal cysts and wanted to proceed with excision of these as well. He understood the technique of both procedures. He was aware of the risks, benefits, and alternatives. He was brought to the operating room. He was placed in prone radha-knife position under general anesthesia via laryngeal mask airway. The buttocks were retracted with wide tape laterally. The perianal area was prepped and draped in the usual sterile fashion. A surgical time-out was done. The patient received Cefotan 2 g IV preoperatively. Examination of the anal orifice revealed externall hemorrhoids, moderate size, on the left and right side. I inserted the Daylin Muhammad retractor and examined the anal canal circumferentially. This same hemorrhoidal columns are noted with a mix of internal component. I applied a Fontanez grasper at the hemorrhoidal column the left to retract this. I made a figure of 8 stitch at its pedicle using chromic 3-0. I made an incision around this hemorrhoidal column to the perianal skin using a blade 15. I excised this hemorrhoidal column above the plane of sphincters using Metzenbaum scissors. I closed this incision with a running chromic 3-0 stitch. Additional hemostatic figure-eight sutures were placed for oozing areas. I proceeded to then remove the hemorrhoidal column on the right side in the same fashion. This hemorrhoidal column was retracted using a Fontanez clamp. I decyyq-ie-[id number] stitch was placed at its pedicle. I made an incision around this hemorrhoidal column to the perianal skin using blade 15. I excised this hemorrhoidal column above the plane of sphincters using scissors and closed this incision with a running chromic 3-0 stitch. Additional hemostatic sutures were placed Once hemostasis was confirmed, I infiltrated the perianal area with Marcaine 0.5% for postop analgesia. The patient was then positioned supine. He was therefore rolled over to a stretcher. The scrotum and the penis were prepped and draped along with the perineum and the groin. There was note of a area of the scrotum with multiple non confluent cystic induration. I marked the planned line of incision. I infiltrated this with lidocaine 1%. I made the incision using blade 15. To include all this serrated areas. This was carried down through the full-thickness of the skin and subcutaneous fat using electrocautery. These area excised measured about 7 cm x 4 cm. I closed this incision with a running 3-0 stitch after copious irrigation. I used electrocautery to cauterize oozing areas prior to closing the incision. Dressings were applied. The procedure was completed . The patient tolerated procedure well. There were no immediate complications. Initial and final counts of sponges and instruments were correct. Estimated blood loss was about 30 cc. The patient was extubated without difficulty and transferred to the recovery room with stable vital signs.
[2023-03-16] MEDS: fentaNYL citrate/PF 100 MCG/2 ML VIAL 50 MCG IVPUSH (11:45)
[2023-03-16] MEDS: Acetaminophen 325 MG TABLET 650 MG PO (11:47)
[2023-03-16] MEDS: oxyCODONE HCl Immed Release 5 MG TABLET 10 MG PO (11:47)
== END 2023-03-16 12:57 | disposition home or self-care (01) ==
PROVIDERS: PCP Internal Medicine; Visit Provider Surgery
PROC: (CPT 46260; principal; 2023-03-16 09:40)
PROC: (CPT 46260; 2023-03-16 09:40)
PROC: (CPT 46260; 2023-03-16 09:40)
DX: K64.8 Other hemorrhoids (principal); Z86.010 Personal history of colon polyps; L72.0 Epidermal cyst; K64.4 Residual hemorrhoidal skin tags; Z88.8 Allergy status to other drugs, medicaments and biological substances; F17.210 Nicotine dependence, cigarettes, uncomplicated
CPT/HCPCS: 46260; 11426; 88304; 93005; J1885; J2405; J2795; J3010

== ENCOUNTER 2023-03-26 06:22 | Emergency (ER) | payer MEDICAID, SELFPAY ==
[2023-03-26 06:24] VITALS: BP 153/82; PULSE 71; RESP 18; TEMP 36.6; O2SAT 98; BMI 25.8
[2023-03-26 06:30] VITALS: BP 153/82; PULSE 75; RESP 20; TEMP 36.9; O2SAT 98
--- NOTE | 2023-03-26 06:37 | PC.NURSE ---
Patient alert and oriented x3. Reports recent surgery to remove cysts on testes and hemorrhoid removal in which stitches recently burst and wound opened. Quarter sized wound viewed at testees and scant blood on dressing. B/P elevated, afebrile and HR 75. Patient reports 10/10 pain.
--- NOTE | 2023-03-26 06:41 | ED.MALEGU ---
HPI - Male Genitourinary General Chief complaint: Urogenital-Male Stated complaint: pain in back and private area Time Seen by Provider: 03/26/23 06:28 Source: patient and family (significant other) Mode of arrival: ambulatory Limitations: no limitations History of Present Illness HPI Narrative: Patient is a 52-year-old male with history of hemorrhoidectomy and excision of multiple scrotal cysts on 03/16/2023 presenting with scrotal pain since this morning, concerned that several of his sutures have ruptured. He denies any fever or abnormal drainage. He does report dark elisa urine but denies any other urinary symptoms. He denies any abdominal pain. His SO reports that he has had a small amount of bloody drainage from his incision since surgery. He was discharged home with Percocet, but his SO reports these were causing constipation so patient has not used them in several days. He denies any abdominal, back, or flank pain. Related Data Previous Rx's Medication Instructions Recorded docusate sodium 100 mg capsule 100 mg PO BID #60 caps 03/16/23 (Colace) ibuprofen 600 mg tablet 600 mg PO Q6H PRN pain #30 tabs 03/16/23 oxycodone-acetaminophen 5 mg-325 1 tab PO Q4-6H PRN pain #30 tabs 03/16/23 mg tablet (Percocet) Allergies Allergy/AdvReac Type Severity Reaction Status Date / Time trimethoprim [From Bactrim] Allergy Severe Anaphylaxis Verified 02/18/23 10:17 codeine Allergy Mild Unknown Verified 02/18/23 10:17 ivory soap Allergy Intermediate Rash Uncoded 02/01/23 10:54 Review of Systems Review of Systems: As per HPI Yes all other systems are reviewed and are negative [facility] Past Medical History Medical History (Updated 03/26/23 @ 08:30 by Maya King NP) Bradyarrhythmia Bradycardia Colon cancer screening Hemorrhoids with complication History of second degree heart block Right ankle injury Sebaceous cyst of scrotum Tubular adenoma Surgical History (Updated 03/16/23 @ 08:09 by Jazlyn Vásquez RN) History of ankle surgery Hx of colonoscopy Family History Family History Mother Hypertension Diabetes Father No problems noted. Brother Gastric cancer Social History Social History Do you presently have visiting nurse or other home services: No Alcohol intake: never Patient Tobacco Use Status: Current everyday Tobacco user Tobacco use type: Cigarette Cigarettes Per Day: 10 Smoked in Last 30 Days: Yes Second Hand Smoke Exposure: Yes Use of substances other than those prescribed or required for medical reasons: Yes Substance Use Type: Marijuana Substance Use Frequency: Daily Last Used Substance: Hours (ago) Advance Directives: No Advance Directives Information Provided: No Current occupational status: unemployed Current occupation: rt hand Physical Exam Vital Signs: Vital Signs: Last Vital Signs Temp 98.5 F 03/26/23 06:30 Pulse 75 03/26/23 06:30 Resp 20 03/26/23 06:30 BP 153/82 H 03/26/23 06:30 Pulse Ox 98 03/26/23 06:30 O2 Del Method Room Air 03/26/23 06:30 BMI result Body Mass Index 25.8 Const: General: no acute distress, alert and awake; No comfortable Orientation/consciousness: patient oriented x3 HEENT: Head: Yes normocephalic and Yes atraumatic Mouth: oropharynx normal and moist mucous membranes Throat: Yes uvula midline Eyes: Pupils: Equal, round and reactive pupils present EOM: EOMs intact bilaterally Neck: Neck: Yes normal visual inspection, Yes full ROM, Yes no lymphadenopathy, Yes no meningeal signs and Yes supple Resp: Effort & Inspection: normal respiratory effort Auscultation: clear to auscultation bilaterally Cardio: Rate: regular rate Rhythm: regular rhythm Heart sounds: S1 normal heart sound present and S2 normal heart sound present Peripheral pulses: Peripheral pulses 2+ throughout GI: Inspection: Yes normal to inspection and No distended Palpation (GI): Soft to palpation, nontender, no guarding and No Rebound tenderness present Auscultation: normoactive bowel sounds : Other: Chaperoned by CHACHA Gonzáles General: Yes no CVA tenderness Penis: normal penis Scrotum: edematous diffuse and other (small amount of bloody drainage noted on pad in underwear, TTP) Back/Spine/Pelvis: Back: no CVA tenderness Skin: General skin exam: elasticity normal and turgor normal Rashes: no rashes Neuro: General: patient oriented x3, gait normal and no meningeal signs Cranial nerves: Yes Equal, round and reactive pupils present Motor exam (neuro): 5/5 motor strength present throughout and Normal motor muscle tone present throughout Sensory Exam: Normal double simultaneous stimulation for sensation Course Course Course Narrative: 08:06 Patient reports some relief of pain with medications given. Awaiting urine. 09:01 Urine does not show any evidence of UTI. Patient is safe to discharge home at this time per Dr. Paiz. Instructed patient to keep follow-up appointment with Dr. Montenegro as on Wednesday and return to the ED sooner if any complications occur. Return precautions discussed at bedside. Patient instructed to keep the area of incision clean and dry, change dressings frequently, and monitor daily for any signs of infection. Medications Administered Discontinued Medications Generic Name Dose Route Start Last Admin Trade Name Freq PRN Reason Stop Dose Admin Docusate Sodium 100 mg 03/26/23 06:45 03/26/23 07:14 Docusate Sodium 100 Mg Capsule PO 03/26/23 06:46 100 mg ONCE ONE Administration Oxycodone HCl 5 mg 03/26/23 06:45 03/26/23 07:14 Oxycodone Hcl Immed Release 5 Mg Tablet PO 03/26/23 06:46 5 mg ONCE ONE Administration Medical Decision Making Medical Decision Making [facility] Narrative: Patient is a 52-year-old male with history of hemorrhoidectomy and excision of multiple scrotal cysts on 03/16/2023 presenting with scrotal pain since this morning, concerned that several of his sutures have ruptured. On exam patient appears uncomfortable, slightly tachycardic with mildly elevated BP likely related to discomfort. He is nontoxic appearing and afebrile. His scrotum is mildly edematous with small amount of bloody drainage noted from incision site. No erythema, no purulent drainage, no calor. Concern for post-op infection/abscess or complication, UTI, pyelonephritis. Low suspicion for sepsis. Spoke with Dr. Paiz who performed patient's surgery on 03/16. He states wound will heal through secondary intention, and patient should focus on high quality wound care, keep the area clean and dry, and follow up in the office on Wednesday for his scheduled appointment. Will check urinalysis to r/o UTI/pyelo. Plan: pain management, urinalysis Please refer to course for remaining clinical decision making. Differential Diagnosis Differential Diagnoses: The differential diagnosis associated with the presentation includes As above. Consult Healthcare Provider Management of the patient was discussed with: Safety Sitter (Dr. Paiz) Lab Data MDM Lab Attestation statement: I reviewed the patient's lab results. Labs: Lab Results 03/26/23 Range/Units 08:25 Urine Color Yellow Urine Appearance Clear Urine pH 6.5 (5.0-9.0) Ur Specific [place] 1.020 (1.005-1.025) Urine Protein Negative (Neg-Trace) mg/dL Urine Glucose (UA) Negative (Negative) mg/dL Urine Ketones Trace (Negative) mg/dL Urine Blood Trace H (Negative) Urine Nitrite Negative (Negative) Ur Leukocyte Esterase Negative (Negative) Urine RBC 3-5 H (0-2) /HPF Urine WBC 0-5 (0-5) /HPF Ur Squamous Epith Cells 0-2 (0-2) /HPF Urine Bacteria None Seen (None Seen) Hyaline Casts 0-2 (0-2) /LPF Independent Historian Clinical information obtained from an independent historian. History obtained from or confirmed by: Spouse External Record Review External record reviewed: Inpatient record, Office record and Outpatient record Prescription Management I considered prescription management with: Pain Medication Discharge Plan Discharge Clinical Impression: Post-operative complication, Dehiscence of wound Patient Disposition: Home, Self-Care Instructions: Wound Dehiscence (ED), Sitz Bath (DC) Additional Instructions: You were evaluated in the emergency department today for a post-operative complication. Your exam does not reveal any conditions requiring emergent medical treatment at this time. Your urine did not show any evidence of infection. Your surgeon, Dr. Paiz, was contacted and feels you are safe for discharge home, but you should keep your follow up appointment on Wednesday. You should be covering the area with a dry dressing and keep the wound clean and dry, and assess the area daily for any signs of infection. You should continue to perform Sitz baths. Return to the emergency department if you develop a fever 100.4? or greater, worsening or uncontrolled pain, increased bleeding, new redness or swelling, or any other concerning symptoms. Prescriptions: No Action oxycodone-acetaminophen [Percocet] 5-325 mg tablet 1 tab PO Q4-6H PRN (Reason: pain) Qty: 30 0RF Rx Instructions: Partial Fill upon patient request. docusate sodium [Colace] 100 mg capsule 100 mg PO BID Qty: 60 2RF ibuprofen 600 mg tablet 600 mg PO Q6H PRN (Reason: pain) Qty: 30 0RF Referrals: Ramakrishna Paiz MD [Physician] -
[2023-03-26] MEDS: oxyCODONE HCl Immed Release 5 MG TABLET PO (07:14)
[2023-03-26] MEDS: Docusate Sodium 100 MG CAPSULE PO (07:14)
[2023-03-26 08:33] LABS: Appearance Urine Clear; Color Urine Yellow; Glucose Urine UA Negative (Negative); Leukocyte Esterase Urine Negative (Negative); Nitrite Urine Negative (Negative); PH 6.5 (5.0-9.0); UMIC TRIGGER UACC YES; Urine Blood Trace (Negative); Urine Ketones Trace mg/dL (Negative); Urine Protein Negative (Neg-Trace)
[2023-03-26 08:38] LABS: Bacteria Urine None Seen (None Seen); Hyaline Casts Urine 0-2 /LPF (0-2); Squamous Epithelial Cell Urine 0-2 /HPF (0-2); WBC Urine 0-5 /HPF (0-5)
== END 2023-03-26 09:23 | disposition home or self-care (01) ==
PROVIDERS: Registered Nurse Emergency; Emergency Provider Emergency Medicine; PCP Internal Medicine
DX: T81.31XA Disruption of external operation (surgical) wound, not elsewhere classified, initial encounter (principal); Y82.8 Other medical devices associated with adverse incidents; N50.82 Scrotal pain; F17.210 Nicotine dependence, cigarettes, uncomplicated
CPT/HCPCS: 81001; 99283; 99284

== ENCOUNTER → 2023-03-29 10:20 | Outpatient (BNVA) | payer MEDICAID, SELFPAY | PROVIDERS: PCP Internal Medicine; Visit Provider Surgery | DX: L72.3 Sebaceous cyst (principal); K64.8 Other hemorrhoids | CPT/HCPCS: 99212 ==

== ENCOUNTER → 2023-03-31 08:46 | Outpatient (BNVA) | payer MEDICAID, SELFPAY | PROVIDERS: PCP Internal Medicine; Visit Provider Orthopaedic Surgery | DX: G56.22 Lesion of ulnar nerve, left upper limb (principal); M25.642 Stiffness of left hand, not elsewhere classified | CPT/HCPCS: 99212 ==

== ENCOUNTER → 2023-04-14 11:29 | Outpatient (BNVA) | payer MEDICAID, SELFPAY | PROVIDERS: PCP Internal Medicine; Visit Provider Surgery | DX: K64.8 Other hemorrhoids (principal); L72.3 Sebaceous cyst | CPT/HCPCS: 99212 ==

== ENCOUNTER → 2023-05-05 10:27 | Outpatient (BNVA) | payer MEDICAID, SELFPAY | PROVIDERS: Visit Provider Surgery | DX: Z48.815 Encounter for surgical aftercare following surgery on the digestive system (principal); Z87.19 Personal history of other diseases of the digestive system; Z87.2 Personal history of diseases of the skin and subcutaneous tissue | CPT/HCPCS: 99212 ==

== ENCOUNTER 2023-11-22 10:46 | Outpatient (AMB) | payer MEDICAID, SELFPAY ==
--- NOTE | 2023-11-22 11:06 | MHC.OFFVIS ---
Intake Vital Signs 11/22/23 11:07 Height 5 ft 8 in Weight 194 lb BMI 29.5 BP 110/61 Blood Pressure Location Rt brachial Position Sitting Pulse 63 Intake Visit Reasons: ? Scrotum hernia Intake Note: This patient present for an assessment for scrotal hernia. Patient c/o; reports no changes. 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 Scrotum hernia HPI Details 53-year-old male referred for a scrotal swelling. He says that he is scrotum has been bigger and getting painful on and off for the past 2 months now. He says that he went to the ER in the [place] sometime in September 2023 for the same problem. He was told that he is scrotum may be swollen but did not appear that he had a hernia. He does describe a little bit of pain on the left groin as well but no obvious mass . His had called the office to have this checked. He denies GI complaints. [facility] Medical History Swelling of left half of scrotum History of second degree heart block Bradycardia Bradyarrhythmia Tubular adenoma Sebaceous cyst of scrotum Colon cancer screening Hemorrhoids with complication Right ankle injury Surgical History History of hemorrhoidectomy (~03/16/23) Hx of colonoscopy History of ankle surgery Family History Mother Hypertension Diabetes Father No problems noted. Brother Gastric cancer Social History Do you presently have visiting nurse or other home services: No Alcohol intake: never Patient Tobacco Use Status: Current everyday Tobacco user Tobacco use type: Cigarette Cigarettes Per Day: 10 Second Hand Smoke Exposure: Yes Substance Use Type: Marijuana Current occupational status: unemployed Current occupation: rt hand Review of Systems Const Denies chills and Denies fever(s) Card Denies chest pain, Denies dyspnea and Denies dyspnea on exertion Resp Denies cough, Denies dyspnea and Denies dyspnea on exertion GI Denies hematochezia and Denies change in bowel habits Denies hematuria and Denies difficulty urinating Musc Denies back pain and Denies limited range of motion Neuro Denies focal weakness and Denies convulsions Psych Denies depression and Denies mood swings Physical Exam Vital Signs: Last Vital Signs Pulse 63 11/22/23 11:07 BP 110/61 11/22/23 11:07 BMI result Body Mass Index 29.5 Const Other: Does not talk much General: comfortable and no acute distress Resp Effort & Inspection: normal respiratory effort Cardio Rate: regular rate GI Other: No obvious inguinal hernia on the left side even with Valsalva Palpation (GI): Soft to palpation, not firm and nontender Other: Scrotum on the left mildly tender, appears a little edematous and boggy Assessment & Plan Assessment & Plan (1) Swelling of left half of scrotum: Code(s): N50.89 - Other specified disorders of the male genital organs Plan: His was worried that this may be a hernia. I do not feel any mass with Valsalva on the left groin. The scrotum does appear to be a little boggy and large. I will order for a CAT scan to rule out a hernia and this should include the scrotum as well. I will see him again in the office to discuss the findings thereafter. He does not have any significant GI complaints at this point. Orders: Orders CT abdomen pelvis wo IV con Today N50.89 - Other specified disorders of the male genital organs Coding Level of Care Code Est Pt Level 3 (37901) Diagnoses Swelling of left half of scrotum N50.89
[2023-11-22 11:07] VITALS: BP 110/61; PULSE 63; BMI 29.5
== END 2023-11-22 11:24 | disposition home or self-care (01) ==
PROVIDERS: PCP Internal Medicine; Visit Provider Surgery
DX: N50.89 Other specified disorders of the male genital organs (principal)
CPT/HCPCS: 99213

== ENCOUNTER → 2023-11-22 10:46 | Outpatient (BNVA) | payer MEDICAID, SELFPAY | PROVIDERS: PCP Internal Medicine; Visit Provider Surgery | DX: N50.89 Other specified disorders of the male genital organs (principal) | CPT/HCPCS: 99212 ==

== ENCOUNTER 2023-12-10 08:58 | Outpatient (REF) | payer MEDICAID, SELFPAY ==
--- NOTE | ~2023-12-10 | CT_ITS ---
EXAMINATION: CT ABDOMEN AND PELVIS WITHOUT CONTRAST CLINICAL INFORMATION: Disorder of the male genital organs. COMPARISON: None available. TECHNIQUE: Multidetector volumetric imaging was performed from the superior aspect of the liver through the pubic symphysis. Sagittal and coronal reformatted images were obtained on the technologist's workstation. This CT examination was performed using dose optimization techniques as appropriate, variously including the following: *Automated exposure control *Adjustment of mA and/or kV according to patient size (this includes techniques or standardized protocols for targeted exams where dose is matched to indication/reason for exam; i.e. extremities or head) *Use of iterative reconstruction technique DLP: 549 mGy-cm FINDINGS: LUNG BASES: The visualized lung bases are unremarkable. LIVER, GALLBLADDER, AND BILIARY TREE: The noncontrast liver is normal in size and contour. No biliary ductal dilatation is present. The gallbladder is unremarkable with no evidence of radiopaque gallstones, gallbladder wall thickening, or obvious pericholecystic inflammatory changes. PANCREAS: No ductal dilatation. SPLEEN: Not enlarged. ADRENAL GLANDS: No adrenal mass. KIDNEYS AND URETERS: The kidneys are symmetric in size. Bilateral hypodensities are completely characterized. No renal calculus. No hydronephrosis or perinephric fluid collection. BLADDER: Decompressed. GASTROINTESTINAL TRACT: Small and large bowel loops are of normal caliber. No small bowel obstruction. Appendix is within normal limits. ABDOMINAL WALL: No significant hernia is appreciated. LYMPH NODES: No bulky lymphadenopathy. VASCULAR: Normal caliber abdominal aorta. PELVIC VISCERA: Unremarkable. OSSEOUS STRUCTURES: Degenerative changes of bilateral hips. Scattered lucent lesions within the pelvic bones. CT/CT abdomen pelvis wo IV con IMPRESSION: No acute abnormality in the abdomen or pelvis.
== END 2023-12-10 08:59 | disposition home or self-care (01) ==
LOC: HO.CT 08:58
PROVIDERS: PCP Internal Medicine; Visit Provider Surgery
DX: N50.89 Other specified disorders of the male genital organs (principal)
CPT/HCPCS: 74176

== ENCOUNTER 2023-12-20 11:11 | Outpatient (AMB) | payer MEDICAID, SELFPAY ==
--- NOTE | 2023-12-20 11:13 | MHC.OFFVIS ---
Intake Intake Visit Reasons: CT scan results Intake Note: This patient presents for a follow-up assessment for Ct-Scan results. Patient c/o; reports no complaints at this time. 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 Accompanied by: Spouse Allergies trimethoprim [From Bactrim] Allergy (Severe, Verified 12/20/23 11:17) Anaphylaxis codeine Allergy (Mild, Verified 12/20/23 11:17) Unknown ivory soap Allergy (Intermediate, Uncoded 12/20/23 11:17) Rash Medication List - Last Reconciled 12/20/23 by Ramakrishna Paiz MD docusate sodium (Colace) 100 mg PO BID ibuprofen 600 mg PO Q6H PRN ibuprofen 600 mg PO Q6H PRN oxycodone-acetaminophen 5-325 mg (Percocet) 1 tab PO Q4-6H PRN polyethylene glycol 3350 (Miralax) 17 grams PO DAILY HPI CT scan results HPI Details I had seen him last month because of question of a left inguinal hernia. He had been seen previously in [place] because of question of a hernia in the scrotum. I could not appreciate a hernia on examination so I had sent him for a CT scan and is here to discuss the findings He says that he has had no problems so far. He denies any palpable mass on the left groin. Denies any pain. He is only complaint now is that he has problems with this rotator cuff. [facility] Medical History Swelling of left half of scrotum History of second degree heart block Bradycardia Bradyarrhythmia Tubular adenoma Sebaceous cyst of scrotum Colon cancer screening Hemorrhoids with complication Right ankle injury Surgical History History of hemorrhoidectomy (~03/16/23) Hx of colonoscopy History of ankle surgery Family History Mother Hypertension Diabetes Father No problems noted. Brother Gastric cancer Social History Do you presently have visiting nurse or other home services: No Alcohol intake: never Patient Tobacco Use Status: Current everyday Tobacco user Tobacco use type: Cigarette Cigarettes Per Day: 10 Second Hand Smoke Exposure: Yes Substance Use Type: Marijuana Current occupational status: unemployed Current occupation: rt hand Review of Systems Const Denies chills and Denies fever(s) Card Denies chest pain, Denies dyspnea and Denies dyspnea on exertion Resp Denies cough, Denies dyspnea and Denies dyspnea on exertion GI Denies hematochezia and Denies change in bowel habits Denies hematuria and Denies difficulty urinating Musc Denies back pain and Denies limited range of motion Neuro Denies focal weakness and Denies convulsions Psych Denies depression and Denies mood swings Physical Exam Const Other: Refused exam of the groin at this time General: comfortable and no acute distress Resp Effort & Inspection: normal respiratory effort Cardio Rate: regular rate GI Other: He did not want to have an examination of the groin today Assessment & Plan Assessment & Plan (1) Swelling of left half of scrotum: Code(s): N50.89 - Other specified disorders of the male genital organs Plan: I have reviewed his CAT scan and this does not show any suggestion of a hernia on the left groin. Therefore, he says that he has not felt any mass on his groin or his scrotum. He denies any pain on the area. He therefore refused examination of the groin today I did tell him that if he has questions down the line, he can come back to the office to be re-evaluated. Coding Level of Care Code Est Pt Level 3 (20321) Diagnoses Swelling of left half of scrotum N50.89
== END 2023-12-20 11:28 | disposition home or self-care (01) ==
PROVIDERS: PCP Internal Medicine; Visit Provider Surgery
DX: N50.89 Other specified disorders of the male genital organs (principal)
CPT/HCPCS: 99213

== ENCOUNTER → 2023-12-20 11:11 | Outpatient (BNVA) | payer MEDICAID, SELFPAY | PROVIDERS: PCP Internal Medicine; Visit Provider Surgery | DX: N50.89 Other specified disorders of the male genital organs (principal) | CPT/HCPCS: 99212 ==

== ENCOUNTER 2024-02-14 09:27 | Outpatient (REF) | payer MEDICAID, SELFPAY ==
[2024-02-14 11:00] LABS: Alanine Aminotransferase 16 U/L (0-40); Albumin Level 4.3 g/dL (3.5-5.0); Alkaline Phosphatase 57 U/L (39-117); Anion Gap 12 (12-20); Aspartate Amino Transferase 18 U/L (5-37); Bilirubin Total 0.6 mg/dL (0.0-1.0); Blood Urea Nitrogen 11 mg/dL (9-16); Calcium 9.1 mg/dL (8.4-10.2); Carbon Dioxide 24 mmol/L (22-29); Chloride 108 mmol/L (96-108); Cholesterol 214 mg/dL (<200); Estimated Glomerular Filt Rate > 60; Glucose Random 99 mg/dL (60-115); HDL Cholesterol 45 mg/dL (>40); LDL Cholesterol Calculated 124 mg/dL (<100); Potassium 3.6 mmol/L (3.3-5.1); Sodium 140 mmol/L (135-145); Total Protein 7.5 g/dL (6.5-8.0); Triglycerides 225 mg/dL (<150)
[2024-02-14 11:16] LABS: HIV AB/AG Nonreactive (Nonreactive); HIV Num 1 0.04 S/CO (0.00-0.99)
[2024-02-14 11:17] LABS: Prostate Specific Antigen Scr 0.36 ng/mL (<0.05-4.0)
[2024-02-14 11:24] LABS: Syphilis Screen Nonreactive (Nonreactive)
[2024-02-16 02:28] LABS: CT PCR NOT DETECTED (Not Detect.); NG PCR NOT DETECTED (Not Detect.)
== END 2024-02-14 09:28 | disposition home or self-care (01) ==
LOC: HO.LAB 09:27
PROVIDERS: PCP Internal Medicine; Visit Provider Internal Medicine
DX: Z00.00 Encounter for general adult medical examination without abnormal findings (principal); E78.00 Pure hypercholesterolemia, unspecified; N40.0 Benign prostatic hyperplasia without lower urinary tract symptoms; Z11.3 Encounter for screening for infections with a predominantly sexual mode of transmission; Z72.0 Tobacco use
CPT/HCPCS: 0353U; 80053; 80061; 84153; 86780; 87389

== ENCOUNTER 2025-01-08 16:19 | Emergency (ER) | payer MEDICAID, SELFPAY ==
[2025-01-08 16:57] VITALS: BP 113/68; PULSE 74; RESP 18; TEMP 37.2; O2SAT 95; BMI 24.4
--- NOTE | 2025-01-08 17:07 | ED.URI ---
HPI - URI/Sore Throat General Chief Complaint: Upper Respiratory Symptoms Stated Complaint: flu like symptoms Time Seen by Provider: 01/08/25 21:45 Source: patient Limitations: no limitations History of Present Illness ED Provider: Felicia Ryan PA-C HPI Narrative: 54-year-old male presents with viral symptoms x2 days. Associated generalized myalgia, headache, dry cough, nasal congestion, nausea vomiting diarrhea. Patient's significant other is sick with same symptoms. Subjective fevers at home. Related Data Previous Rx's ?Medication ?Instructions ?Recorded docusate sodium 100 mg capsule 100 mg PO BID #60 caps 03/16/23 (Colace) ibuprofen 600 mg tablet 600 mg PO Q6H PRN pain #30 tabs 03/16/23 oxycodone-acetaminophen 5 mg-325 1 tab PO Q4-6H PRN pain #30 tabs 03/16/23 mg tablet (Percocet) ibuprofen 600 mg tablet 600 mg PO Q6H PRN pain #30 tabs 03/29/23 polyethylene glycol 3350 17 17 g PO DAILY #119 grams 03/29/23 gram/dose oral powder (Miralax) dicyclomine 20 mg tablet 20 mg PO BID PRN diarrhea #6 tabs 01/08/25 ondansetron HCl 4 mg tablet 4 mg PO Q8H PRN nausea and 01/08/25 vomiting #10 tabs Allergies Allergy/AdvReac Type Severity Reaction Status Date / Time trimethoprim [From Bactrim] Allergy Severe Anaphylaxis Verified 01/08/25 17:01 codeine Allergy Mild Unknown Verified 01/08/25 17:01 ivory soap Allergy Intermediate Rash Uncoded 12/20/23 11:17 Review of Systems Review of Systems: Yes all other systems are reviewed and are negative Constitutional: Constitutional: Reports fatigue, Reports fever(s) and Reports malaise ENT: Reports nasal discharge Cardiovascular: Cardiovascular: Denies chest pain and Denies dyspnea Respiratory: Respiratory: Denies chest congestion, Reports cough and Denies dyspnea Gastrointestinal: Gastrointestinal: Denies abdominal pain, Reports diarrhea, Reports nausea and Reports vomiting Endocrine: Endocrine: Reports fatigue PMFSH Past Medical History Medical History Swelling of left half of scrotum History of second degree heart block Bradycardia Bradyarrhythmia Tubular adenoma Sebaceous cyst of scrotum Colon cancer screening Hemorrhoids with complication Right ankle injury Surgical History History of hemorrhoidectomy (~03/16/23) Hx of colonoscopy History of ankle surgery Family History Family History Mother Hypertension Diabetes Father No problems noted. Brother Gastric cancer Social History Social History Do you presently have visiting nurse or other home services: No Alcohol intake: never Patient Tobacco Use Status: Current everyday Tobacco user Tobacco use type: Cigarette Cigarettes Per Day: 10 Second Hand Smoke Exposure: Yes Substance Use Type: Marijuana Advance Directives: No Advance Directives Information Provided: No Current occupational status: unemployed Current occupation: rt hand Physical Exam Vital Signs: Vital Signs: Last Vital Signs Temp 99.0 F 01/08/25 16:57 Pulse 74 01/08/25 16:57 Resp 18 01/08/25 16:57 BP 113/68 01/08/25 16:57 Pulse Ox 95 01/08/25 16:57 O2 Del Method Room Air 01/08/25 16:57 BMI result Body Mass Index 24.4 Const: Other: Alert Orientation/consciousness: patient oriented x3 Resp: Other: Active dry cough Effort & Inspection: normal respiratory effort Cardio: Other: Normal peripheral perfusion Skin: Other: Warm dry no rash Neuro: General: patient oriented x3, gait normal, no focal motor deficits and CN's II-XI intact bilaterally Psych: Other: Cooperative Course Course Course Narrative: This is a Rapid Medical Examination (RME) performed by Yael Madrid PA-C in triage. Full HPI, ROS, assessment and treatment plan per primary provider in the Main ED. 54 yo male here for eval of myalgisa, nausea w/o vomiting, coughing, sneezing x24 hours. partnet w/ similar sx. took mucinex around 1400. Plan: viral swabs, basic labs Medications Administered Discontinued Medications Generic Name Dose Route Start Last Admin Trade Name Freq PRN Reason Stop Dose Admin Acetaminophen 975 mg 01/08/25 22:33 01/08/25 23:03 Acetaminophen 325 Mg Tablet PO 01/08/25 22:34 975 mg ONCE ONE Administration Ibuprofen 600 mg 01/08/25 22:33 01/08/25 23:03 Ibuprofen 600 Mg Tablet PO 01/08/25 22:34 600 mg ONCE ONE Administration Ondansetron HCl 4 mg 01/08/25 22:33 01/08/25 23:04 Ondansetron Odt 4 Mg Tab.Mahi PEREAU 01/08/25 22:34 4 mg ONCE ONE Administration Medical Decision Making Medical Decision Making [facility] Narrative: 54-year-old male presents with viral symptoms x2 days. Associated generalized myalgia, headache, dry cough, nasal congestion, nausea vomiting diarrhea. Patient's significant other is sick with same symptoms. Subjective fevers at home. No relevant chronic issues History: Per patient I have considered the following differential diagnoses: Viral syndrome, pneumonia, bronchitis, gastroenteritis Plan: Viral panel obtained from triage the patient is positive for influenza a, the other screening labs were normal. We will send with home care instructions. I have independently reviewed the following tests: Labs: No leukocytosis, not anemic, no electrolyte abnormality noted, influenza a positive Lab Data 01/08/25 17:59 01/08/25 17:59 Labs: Lab Results 01/08/25 Range/Units 17:59 WBC 4.8 (4.8-10.8) X10*3/uL RBC 4.66 (4.60-5.80) X10*6/uL Hgb 14.1 (14.0-18.0) g/dl Hct 42.5 (42.0-52.0) % MCV 91.2 (80.0-98.0) fL MCH 30.3 (27.0-33.0) pg MCHC 33.2 (31.0-36.0) g/dl RDW 11.9 (11.0-16.0) % Plt Count 167 (160-400) X10*3/uL MPV 9.7 (9.4-12.4) fL Immature Gran % (Auto) 0.4 (0.0-0.4) % Neut % (Auto) 60.6 (45-73) % Lymph % (Auto) 17.6 L (20-40) % [place] % (Auto) 20.8 H (2-11) % Eos % (Auto) 0.4 (0-4) % Baso % (Auto) 0.2 (0-2) % Lymph # (Auto) 0.8 L (1.2-4.9) X10*3/uL [place] # (Auto) 1.0 (0.1-1.2) X10*3/uL Eos # (Auto) 0.0 (0.0-0.4) X10*3/uL Baso # (Auto) 0.0 (0.0-0.2) X10*3/uL Abs Immat Gran (auto) 0.02 (0.00-0.03) X10*3/uL Absolute Neuts (auto) 2.9 (2.0-8.3) x10*3/uL Absolute Nucleated RBC 0.000 (0.0-0.012) X10*3/uL Nucleated RBC % (auto) 0.0 (0.0-0.2) /100WBC Smear Tech's Comments VERIFIED Sodium 139 (135-145) mmol/L Potassium 4.6 D (3.3-5.1) mmol/L Chloride 104 (96-108) mmol/L Carbon Dioxide 28 (22-29) mmol/L Anion Gap 12 (12-20) BUN 12 (9-16) mg/dL Creatinine 1.15 (0.5-1.4) mg/dL Estim Creat Clear Calc 86.3 Estimated GFR > 60 Random Glucose 93 (60-115) mg/dL Calcium 9.5 (8.4-10.2) mg/dL Total Bilirubin 0.8 (0.0-1.0) mg/dL AST 35 (5-37) U/L ALT 12 (0-40) U/L Alkaline Phosphatase 60 (39-117) U/L Total Protein 8.4 H (6.5-8.0) g/dL Albumin 4.4 (3.5-5.0) g/dL Influenza Type A (PCR) POSITIVE A (Negative) Influenza Type B (PCR) NEGATIVE (Negative) RSV RNA Qual (PCR) NEGATIVE (Negative) SARS-CoV-2 RNA (RT-PCR) NEGATIVE (Negative) Discharge Plan Discharge Clinical Impression: Influenza A Patient Disposition: Home, Self-Care Instructions: Influenza (ED) Additional Instructions: You tested positive for influenza. See home care instructions. You can use [id number] ibuprofen 600 mg taken every 6 hours with food, alternated with [id number] Tylenol 1000 mg taken every 8 hours, for fever, headache and body ache. Uses Zofran as needed for nausea. Use the dicyclomine if the diarrhea becomes bothersome. Follow up with your primary care provider as needed. Prescriptions: New ondansetron HCl 4 mg tablet 4 mg PO Q8H PRN (Reason: nausea and vomiting) Qty: 10 0RF dicyclomine 20 mg tablet 20 mg PO BID PRN (Reason: diarrhea) Qty: 6 0RF No Action oxycodone-acetaminophen [Percocet] 5-325 mg tablet 1 tab PO Q4-6H PRN (Reason: pain) Qty: 30 0RF Rx Instructions: Partial Fill upon patient request. docusate sodium [Colace] 100 mg capsule 100 mg PO BID Qty: 60 2RF ibuprofen 600 mg tablet 600 mg PO Q6H PRN (Reason: pain) Qty: 30 0RF ibuprofen 600 mg tablet 600 mg PO Q6H PRN (Reason: pain) Qty: 30 0RF polyethylene glycol 3350 [Miralax] 17 gram/dose powder 17 g PO DAILY Qty: 119 0RF Print Language: Yoruba
[2025-01-08 18:04] LABS: Basophils Percent Auto 0.2 % (0-2); Eosinophils Percent Auto 0.4 % (0-4); Hematocrit 42.5 % (42.0-52.0); Hemoglobin 14.1 g/dl (14.0-18.0); Imm Gran Abs Auto 0.02 X10*3/uL (0.00-0.03); Imm Gran Pct Auto 0.4 % (0.0-0.4); Lymphocytes Absolute Auto 0.8 X10*3/uL (1.2-4.9); Lymphocytes Percent Auto 17.6 % (20-40); MANUAL DIFF FLAG SCAN; Mean Corpuscular HGB Conc 33.2 g/dl (31.0-36.0); Mean Corpuscular Hemoglobin 30.3 pg (27.0-33.0); Mean Corpuscular Volume 91.2 fL (80.0-98.0); Mean Platelet Volume 9.7 fL (9.4-12.4); Monocytes Percent Auto 20.8 % (2-11); Neutrophils Absolute Auto 2.9 x10*3/uL (2.0-8.3); Neutrophils Percent Auto 60.6 % (45-73); Platelet Count 167 X10*3/uL (160-400); Red Blood Count 4.66 X10*6/uL (4.60-5.80); Red Cell Distribution Width 11.9 % (11.0-16.0); SCAN SMEAR FLAG 1; White Blood Count 4.8 X10*3/uL (4.8-10.8)
[2025-01-08 18:27] LABS: SLIDE REVIEW VERIFIED
[2025-01-08 18:29] LABS: Alanine Aminotransferase 12 U/L (0-40); Albumin Level 4.4 g/dL (3.5-5.0); Alkaline Phosphatase 60 U/L (39-117); Anion Gap 12 (12-20); Aspartate Amino Transferase 35 U/L (5-37); Bilirubin Total 0.8 mg/dL (0.0-1.0); Blood Urea Nitrogen 12 mg/dL (9-16); Calcium 9.5 mg/dL (8.4-10.2); Carbon Dioxide 28 mmol/L (22-29); Chloride 104 mmol/L (96-108); Creatinine Clr Calc Pharmacy 86.3; Estimated Glomerular Filt Rate > 60; Glucose Random 93 mg/dL (60-115); Potassium 4.6 mmol/L (3.3-5.1); Sodium 139 mmol/L (135-145); Total Protein 8.4 g/dL (6.5-8.0)
[2025-01-08 18:42] LABS: Influenza A PCR POSITIVE (Negative); Influenza B PCR NEGATIVE (Negative); Resp Syncy Virus RNA Qual PCR NEGATIVE (Negative); SARS COV2 PCR INHOUSE NEGATIVE (Negative)
[2025-01-08] MEDS: Acetaminophen 325 MG TABLET 975 MG PO (23:03)
[2025-01-08] MEDS: Ibuprofen 600 MG TABLET PO (23:03)
[2025-01-08] MEDS: Ondansetron ODT 4 MG TAB.RAPDIS TRANSLINGU (23:04)
[2025-01-08 23:31] VITALS: BP 106/75; PULSE 81; RESP 20; TEMP 37.6; O2SAT 96
[2025-01-08 23:51] VITALS: BP 106/75; PULSE 81; RESP 20; TEMP 37.6; O2SAT 96
== END 2025-01-08 23:51 | disposition home or self-care (01) ==
PROVIDERS: Emergency Provider Emergency Medicine; PCP Internal Medicine
DX: J10.1 Influenza due to other identified influenza virus with other respiratory manifestations (principal); M79.10 Myalgia, unspecified site; R51.9 Headache, unspecified; R05.9 Cough, unspecified; R11.2 Nausea with vomiting, unspecified; R50.9 Fever, unspecified; Z03.818 Encounter for observation for suspected exposure to other biological agents ruled out
CPT/HCPCS: 0241U; 80053; 85025; 99283; 99284

== ENCOUNTER 2025-01-31 11:06 | Outpatient (REF) | payer MEDICAID, SELFPAY ==
[2025-01-31 11:27] LABS: MANUAL DIFF FLAG NO
[2025-01-31 11:42] LABS: Basophils Percent Auto 0.2 % (0-2); Eosinophils Percent Auto 0.2 % (0-4); Hematocrit 42.8 % (42.0-52.0); Hemoglobin 13.8 g/dl (14.0-18.0); Imm Gran Abs Auto 0.06 X10*3/uL (0.00-0.03); Imm Gran Pct Auto 0.5 % (0.0-0.4); Lymphocytes Absolute Auto 2.4 X10*3/uL (1.2-4.9); Lymphocytes Percent Auto 19.6 % (20-40); Mean Corpuscular HGB Conc 32.2 g/dl (31.0-36.0); Mean Corpuscular Hemoglobin 29.5 pg (27.0-33.0); Mean Corpuscular Volume 91.5 fL (80.0-98.0); Mean Platelet Volume 10.9 fL (9.4-12.4); Monocytes Percent Auto 8.3 % (2-11); Neutrophils Absolute Auto 8.6 x10*3/uL (2.0-8.3); Neutrophils Percent Auto 71.2 % (45-73); Platelet Count 176 X10*3/uL (160-400); Red Blood Count 4.68 X10*6/uL (4.60-5.80); Red Cell Distribution Width 12.2 % (11.0-16.0); White Blood Count 12.1 X10*3/uL (4.8-10.8)
[2025-01-31 12:20] LABS: Alanine Aminotransferase 10 U/L (0-40); Albumin Level 4.2 g/dL (3.5-5.0); Alkaline Phosphatase 56 U/L (39-117); Anion Gap 10 (12-20); Aspartate Amino Transferase 18 U/L (5-37); Bilirubin Total 0.9 mg/dL (0.0-1.0); Blood Urea Nitrogen 10 mg/dL (9-16); Calcium 9.3 mg/dL (8.4-10.2); Carbon Dioxide 24 mmol/L (22-29); Chloride 108 mmol/L (96-108); Cholesterol 163 mg/dL (<200); Estimated Glomerular Filt Rate > 60; Glucose Random 100 mg/dL (60-115); HDL Cholesterol 50 mg/dL (>40); LDL Cholesterol Calculated 101 mg/dL (<100); Potassium 4.1 mmol/L (3.3-5.1); Sodium 138 mmol/L (135-145); Total Protein 7.9 g/dL (6.5-8.0); Triglycerides 62 mg/dL (<150)
[2025-01-31 12:21] LABS: Prostate Specific Antigen Scr 0.32 ng/mL (<0.05-4.0)
== END 2025-01-31 11:07 | disposition home or self-care (01) ==
LOC: HO.LAB 11:06
PROVIDERS: PCP Internal Medicine; Visit Provider Internal Medicine
DX: E78.00 Pure hypercholesterolemia, unspecified (principal); F32.2 Major depressive disorder, single episode, severe without psychotic features; G56.22 Lesion of ulnar nerve, left upper limb; N40.0 Benign prostatic hyperplasia without lower urinary tract symptoms; R20.8 Other disturbances of skin sensation; Z72.0 Tobacco use
CPT/HCPCS: 36415; 80053; 80061; 84153; 85025

== ENCOUNTER 2025-04-10 13:35 | Outpatient (AMB) | payer MEDICAID, SELFPAY ==
[2025-04-10 14:34] VITALS: BMI 24.4
--- NOTE | 2025-04-10 14:34 | A.OFFVIS_ITS ---
Vital Signs 04/10/25 14:34 Height 6 ft 2 in Weight 190 lb BMI 24.4 Intake Visit Reasons: OV B/L hand CTS Intake Note: Cristobal 54 yr old right hand dominant male presents today for his follow up visit for his CTS of bilateral hands. Last visit patient denied surgical intervention for CTS. Currently states his symptoms have worsen and would like to explore other options other than surgery. Allergies trimethoprim [From Bactrim] Allergy (Severe, Verified 04/10/25 14:47) Anaphylaxis codeine Allergy (Mild, Verified 04/10/25 14:47) Unknown ivory soap Allergy (Intermediate, Uncoded 04/10/25 14:47) Rash HPI HPI OV B/L hand CTS: Details: The patient is a 54-year-old [id number] man who is seen today with a female stock associate who I believe is his girlfriend. He was last seen by me on 03/31/2023 complaining of left-sided hand numbness tingling and pain. He was found to have bilateral cubital tunnel syndrome and a 2022 EMG nerve conduction study. I talked to him in his girlfriend at length about cubital tunnel surgery. He was rather out of it during that clinic visit and also did not want to have surgery. His chief complaint today is of left hand numbness in all fingers and pain in his hand. He says he is tired of having surgery for things, and is not interested in surgery.. [facility] Medical History Swelling of left half of scrotum History of second degree heart block Bradycardia Bradyarrhythmia Tubular adenoma Sebaceous cyst of scrotum Colon cancer screening Hemorrhoids with complication Right ankle injury Surgical History History of hemorrhoidectomy (~03/16/23) Hx of colonoscopy History of ankle surgery Family History Mother Hypertension Diabetes Father No problems noted. Brother Gastric cancer Social History Do you presently have visiting nurse or other home services: No Alcohol intake: never Patient Tobacco Use Status: Current everyday Tobacco user Tobacco use type: Cigarette Cigarettes Per Day: 10 Second Hand Smoke Exposure: Yes Substance Use Type: Marijuana Current occupational status: unemployed Current occupation: rt hand Physical Exam Vital Signs: BMI result Body Mass Index 24.4 Extrem Other: The patient was alert, but had difficulty with making or maintaining eye contact with me during our visit today. He was seen today with his girlfriend. He did complain of pain and swelling and numbness in his left hand which he says is now constant and in all fingers. I saw no swelling today in his left hand or upper extremity The patient reported dense numbness in all of the fingers of his left hand. No intrinsic or thenar wasting today Good finger abduction and adduction, and good APB muscle belly firing He can make a fist and extend all of his digits. Nerve conduction study: Impression: Mild to moderate left and mild right ulnar neuropathy across the cubital tunnel Performed by Dr. Sears 02/25/2023 Assessment & Plan Assessment & Plan (1) Numbness of left hand: Code(s): R20.0 - Anesthesia of skin Category: Medical (2) Cubital tunnel syndrome on left: Code(s): G56.22 - Lesion of ulnar nerve, left upper limb Category: Medical Plan Assessment and plan: 1. Left cubital tunnel syndrome, mild to moderate With dense numbness in the ulnar distribution of the hand, and also the rest of the hand per patient No intrinsic or thenar wasting 2. Left hand dense numbness in all of the fingers of the left hand including the median nerve distribution Nerve conduction study from 2022 did not show carpal tunnel syndrome at that time. I had a long talk with the patient and his girlfriend about carpal tunnel syndrome and cubital tunnel syndrome I explained the risks of delaying treatment for these conditions. I am ordering a new EMG nerve conduction study for the left upper extremity. The patient expressed, while avoiding eye contact, that he does not want to have surgery. We did fit him with a Velcro wrist splint to wear at night, as his girlfriend said his symptoms are worse at night and believes it is because his wrist flexes at night. Please note that a long time was spent talking with this patient in 2022 about the same issues. We hope to see him after his nerve conduction study. 3. Right cubital tunnel syndrome, mild He denies having any symptoms of numbness in the right hand Coding Level of Care Code Est Pt Level 4 (71297) Diagnoses Numbness of left hand R20.0 Cubital tunnel syndrome on left G56.22
== END 2025-04-10 15:04 | disposition home or self-care (01) ==
LOC: HO.HOS 13:36
PROVIDERS: PCP Internal Medicine; Visit Provider Orthopaedic Surgery
DX: R20.0 Anesthesia of skin (principal); G56.22 Lesion of ulnar nerve, left upper limb
CPT/HCPCS: 99213

== ENCOUNTER → 2025-04-10 13:35 | Outpatient (BNVA) | payer MEDICAID, SELFPAY | PROVIDERS: PCP Internal Medicine; Visit Provider Orthopaedic Surgery | DX: G56.22 Lesion of ulnar nerve, left upper limb (principal); R20.0 Anesthesia of skin | CPT/HCPCS: 99212 ==